=== PATIENT | female | born 1960 | race Caucasian/White ===

== ENCOUNTER 2020-07-07 07:34 | Day surgery (SDC) | payer OTHER ==
[~2020-07-07] VITALS: Ht 165.1 cm; Wt 90.7 kg
[~2020-07-07 07:34] MED LIST: CANDESARTAN-HC1 EAC1 PO; DULOXETINE HCL30 MG PO; DULOXETINE HCL60 MG PO; GABAPENTIN300 MG PO; IPRAT-ALBUT 0.5-3 ML INH; KEFLEX500 MG PO; LEVOTHYROXINE125 MCG PO; METFORMIN HCL500 MG PO; NORCO 5-325 TA1 EACH PO; OMEPRAZOLE40 MG PO; ZOFRAN ODT4 MG PO
[2020-07-07] MEDS ORDERED: LIPITOR40 MG PO (07:59)
--- NOTE | 2020-07-07 09:19 | NUR ---
07/07/20 0919 Ariane Adler 0915 PT ARRIVED TO PACU AND WAKES EASILY TO TACTILE STIMULI AND REORIENTED TO PACU. VSS. PT EASILY FALLS BACK TO SLEEP.
--- NOTE | 2020-07-07 16:25 | OR ---
[facility] [address] [place], [place] [address] Signed DATE OF OPERATION: 07/07/2020 SURGEON: Mindy Lyles MD PREOPERATIVE DIAGNOSIS: Surveillance colonoscopy for history of polyps. POSTOPERATIVE DIAGNOSES: 1. Diverticulosis of sigmoid, no evidence of polyps. 2. Hypertrophied anal papilla. PROCEDURE: Total colonoscopy to cecum. ANESTHESIA: Intravenous sedation, fentanyl 100 mcg and Versed 5 mg. INDICATIONS: This 59-year-old white woman is a patient of pily Díaz registered nurse practitioner and is here for surveillance colonoscopy. She underwent colonoscopy in the distant past, records of which are not available and said to have had polyps. She has no family history of colon cancer. No current symptoms of bleeding, diarrhea, or constipation. She is here to undergo colonoscopy. She understands the risks of bleeding, infection, and perforation. FINDINGS: The prep was excellent. Complete colonoscopy was undertaken of the cecum without question. She has scattered diverticula of the sigmoid, but no other findings, specifically no polyps. DESCRIPTION OF PROCEDURE: The patient was brought to the endoscopy suite and placed in lateral decubitus position given intravenous sedation to the point of slurred speech and nystagmus. Digital rectal examination was normal. The Olympus video colonoscope was passed into the rectum and manipulated throughout the colon noting diverticula of the sigmoid. The scope was advanced beyond this ultimately to the cecum. The ileocecal valve and appendiceal orifice were normal. Scope was withdrawn from that point. Examination throughout showed no sign of abnormality, only the diverticula as previously noted. Retroflexed view did show some hypertrophied anal Electronically Signed By: MINDY LYLES MD 07/07/20 1625 PATIENT NAME: SAMUEL ERAZO OPERATIVE REPORT DATE OF : 58 REPORT #: [id number] PHYSICIAN: MINDY LYLES MD PCP: NORMA DÍAZ REPORT IS CONFIDENTIAL AND NOT TO BE RELEASED WITHOUT AUTHORIZATION [facility] [address] [place] [id number] Signed papilla, but no sign of hemorrhoidal disease or other problem. The scope was removed. The patient was taken to the recovery room in good condition. CONCLUDING DIAGNOSIS: Diverticulosis, no sign of polyps. PLAN: Recommend repeat colonoscopy in 10 years or sooner if clinically indicated. She will return to the ongoing care of EFRAÍN Truong. MD RADHA Moseley/MODL /[id number] Copies: ~ Electronically Signed By: MINDY LYLES MD 07/07/20 1625 PATIENT NAME: SAMUEL ERAZO OPERATIVE REPORT DATE OF : 58 REPORT #: [id number] PHYSICIAN: MINDY LYLES MD PCP: NORMA DÍAZ REPORT IS CONFIDENTIAL AND NOT TO BE RELEASED WITHOUT AUTHORIZATION
== END 2020-07-07 09:58 | disposition home or self-care (01) ==
LOC: OPS 07:34 → DS 07:34 → OPS 08:30 → DS 08:30 → OPS 09:58
PROVIDERS: ATTEND Surgery
PROC: 0DJD8ZZ Inspection of Lower Intestinal Tract, Via Natural or Artificial Opening Endoscopic (ICD-10-PCS; principal; 2020-07-07 08:30)
DX: Z12.11 Encounter for screening for malignant neoplasm of colon (principal); K57.30 Diverticulosis of large intestine without perforation or abscess without bleeding; K62.89 Other specified diseases of anus and rectum; E03.9 Hypothyroidism, unspecified; F32.9 Major depressive disorder, single episode, unspecified; E78.5 Hyperlipidemia, unspecified; I10 Essential (primary) hypertension; R73.03 Prediabetes; K21.00 Gastro-esophageal reflux disease with esophagitis, without bleeding; Z79.899 Other long term (current) drug therapy; Z79.84 Long term (current) use of oral hypoglycemic drugs; Z79.890 Hormone replacement therapy; Z90.49 Acquired absence of other specified parts of digestive tract; Z86.010 Personal history of colon polyps
CPT/HCPCS: 99153; G0500; J2250; J3010; J7121

== ENCOUNTER 2021-12-19 12:45 | Emergency (ER) | payer OTHER ==
[~2021-12-19] VITALS: Ht 162.6 cm; Wt 95.2 kg
[~2021-12-19 12:45] MED LIST changes: +LIPITOR40 MG PO
== END 2021-12-19 17:05 | disposition home or self-care (01) ==
LOC: ED 12:45
DX: J06.9 Acute upper respiratory infection, unspecified (principal); I10 Essential (primary) hypertension; E03.9 Hypothyroidism, unspecified; E11.9 Type 2 diabetes mellitus without complications; Z87.891 Personal history of nicotine dependence; Z79.899 Other long term (current) drug therapy; Z79.84 Long term (current) use of oral hypoglycemic drugs; Z20.822 Contact with and (suspected) exposure to COVID-19
CPT/HCPCS: 36415; 71045; 80053; 85025; 85379; 87502; 94640; 99283-25; C9803; U0003

== ENCOUNTER 2022-01-23 16:38 | Emergency (ER) | payer OTHER ==
[~2022-01-23] VITALS: Ht 162.6 cm; Wt 93.1 kg
== END 2022-01-23 18:53 | disposition short-term general hospital (02) ==
LOC: ED 16:38
DX: H54.61 Unqualified visual loss, right eye, normal vision left eye (principal); I10 Essential (primary) hypertension; E11.9 Type 2 diabetes mellitus without complications; E03.9 Hypothyroidism, unspecified; Z87.891 Personal history of nicotine dependence; Z79.84 Long term (current) use of oral hypoglycemic drugs; Z79.899 Other long term (current) drug therapy; Z83.518 Family history of other specified eye disorder
CPT/HCPCS: 99284